=== PATIENT | female | born 2000 | race Caucasian/White ===

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

== ENCOUNTER 2018-01-03 21:00 | Inpatient (IN) ==
[2018-01-03 21:25] LABS: Bilirubin,Urine Negative (Negative); Blood,Urine Large (Negative); Clarity,Urine Clear (Clear); Color,Urine Yellow (Yellow); Glucose,Urine (UA) >=1000 mg/dL (Normal); Ketones,Urine >=160 mg/dL (Negative); Leukocyte Esterase,Urine Negative (Negative); Nitrite,Urine Negative (Negative); PH,Urine 5.5 pH Units (5.0-8.0); Protein,Urine Trace mg/dL (Neg-Trace); Specific Gravity,Urine > 1.030 (1.010-1.025); Urobilinogen,Urine Normal (Normal)
[2018-01-03 21:26] LABS: Bacteria,Urine None Seen per hpf (None-Few); Hyaline Casts,Urine None Seen per lpf (None-Few); RBC,Urine TNTC per hpf (0-3); Squamous Epithelial Cell,Urine Many per lpf (None-Few); WBC,Urine 0-3 per hpf (0-3)
[2018-01-03] MEDS ORDERED: 0.9 % Sodium Chloride 1,000 ML IVC ONE ×2 (21:26→21:45)
--- NOTE | 2018-01-03 21:28 | Emergency Department Note ---
Disposition Clinical Impression: DKA (diabetic ketoacidoses) Disposition: Admitted As Inpatient Condition: Fair General Adult HPI - General Chief complaint: ED General Medical Stated complaint: passing ketones/vomiting Time Seen by Provider: 01/03/18 21:17 Source: patient Limitations: no limitations - History of Present Illness Pain Scale: 8 - Related Data Home Medications Medication Instructions Recorded Confirmed Insulin LISPRO [HumaLOG] 1 - 7 units SQ TID PRN 04/22/15 01/03/18 Insulin Glargine,Hum.rec.anlog 50 unit SQ HS 05/23/17 01/03/18 [Lantus Solostar] Allergies Allergy/AdvReac Type Severity Reaction Status Date / Time adhesive AdvReac Rash Verified 09/15/17 10:43 latex AdvReac Rash Verified 09/15/17 10:43 Past Medical History - Past Medical History Medical history: Reports: diabetes, thyroid disease Surgical history: Reports: other Psychiatric history: Reports: no psych history CHARTER COORDINATOR history: Reports: no CHARTER COORDINATOR history - Social History Smoking Status: Never smoker Smokeless Tobacco Status: No Alcohol use: Reports: none Drug use: Reports: none Physical Exam - General Limitations: no limitations General appearance: alert Course Vital Signs Temperature 98.7 F 01/03/18 21:11 Pulse Rate 142 01/03/18 21:11 Respiratory Rate 18 01/03/18 21:11 Blood Pressure 117/73 01/03/18 21:11 O2 Sat by Pulse Oximetry 98 01/03/18 21:11 Temperature 98.3 F 01/04/18 20:20 Pulse Rate 100 01/04/18 17:00 Respiratory Rate 19 01/04/18 17:00 Blood Pressure 118/75 01/04/18 17:00 O2 Sat by Pulse Oximetry 99 01/04/18 17:00 Oxygen Delivery Oxygen Delivery Room Air Medical Decision Making - Lab Data Result diagrams: 01/04/18 17:30 01/04/18 17:30 Lab Results 01/03/18 01/03/18 01/03/18 Range/Units 21:00 21:00 21:24 WBC (4.3-11.1) K/mcL RBC (3.82-4.97) M/mcL Hgb (11.5-15.4) g/dL Hct (35.3-44.9) % MCV (83.0-100.0) fL MCH (28.0-33.3) pg MCHC (31.6-35.5) g/dL RDW (11.5-14.5) % Plt Count (140-400) K/mcL MPV (9.4-12.4) fL Immature Gran % (0-4) % Seg Neutrophils % % Lymphocytes % % Monocytes % % Eosinophils % % Basophils % % Neutrophils # (1.6-8.9) K/mcL Lymphocytes # (0.6-4.6) K/mcL Monocytes # (0.0-1.3) K/mcL Eosinophils # (0.0-0.6) K/mcL Basophils # (0.0-0.2) K/mcL VBG pH (7.32-7.42) pH Units VBG pCO2 (41-51) mmHg VBG pO2 (25-50) mmHg VBG HCO3 (21-27) mEq/L Sodium (136-145) mEq/L Potassium (3.5-5.1) mEq/L Chloride (98-107) mEq/L Carbon Dioxide (23-29) mEq/L BUN (6-20) mg/dL Creatinine (0.60-1.20) mg/dL Est GFR ( Amer) Est GFR (Non-Af Amer) BUN/Creatinine Ratio (6-26) Glucose (70-105) mg/dL POC Glucose 598 H* (70-99) mg/dL Calculated Osmolality (280-300) Calcium (8.6-10.3) mg/dL Magnesium (1.6-2.6) mg/dL Total Bilirubin (0.3-1.0) mg/dL AST (13-39) Units/L ALT (7-52) Units/L Alkaline Phosphatase (34-104) Units/L Serum Total Protein (6.4-8.9) g/dL Albumin (3.5-5.7) g/dL Globulin (2.4-3.5) g/dL Albumin/Globulin Ratio (1.1-2.2) Beta-Hydroxybutyric Acd (0.02-0.27) mmol/L Urine Color Yellow (Yellow) Urine Clarity Clear (Clear) Urine pH 5.5 (5.0-8.0) pH Units Ur Specific [place] > 1.030 H (1.010-1.025) Urine Protein Trace (Neg-Trace) mg/dL Urine Glucose (UA) >=1000 H (Normal) mg/dL Urine Ketones >=160 H (Negative) mg/dL Urine Blood Large H (Negative) Urine Nitrite Negative (Negative) Urine Bilirubin Negative (Negative) Urine Urobilinogen Normal (Normal) mg/dL Ur Leukocyte Esterase Negative (Negative) Urine Microscopic RBC TNTC H (0-3) per hpf Urine Microscopic WBC 0-3 (0-3) per hpf Ur Squamous Epith Cells Many H (None-Few) per lpf Urine Bacteria None Seen (None-Few) per hpf Hyaline Casts None Seen (None-Few) per lpf Ur Culture Indicated? NO (NO) Urine Test Negative (Negative) Person Notif of Crit 01/03/18 01/03/18 01/03/18 Range/Units 21:25 21:44 21:44 WBC 10.7 (4.3-11.1) K/mcL RBC 5.05 H (3.82-4.97) M/mcL Hgb 14.5 (11.5-15.4) g/dL Hct 42.9 (35.3-44.9) % MCV 85.0 (83.0-100.0) fL MCH 28.7 (28.0-33.3) pg MCHC 33.8 (31.6-35.5) g/dL RDW 13.6 (11.5-14.5) % Plt Count 476 H (140-400) K/mcL MPV 9.7 (9.4-12.4) fL Immature Gran % 0.6 (0-4) % Seg Neutrophils % 78.4 % Lymphocytes % 17.0 % Monocytes % 3.5 % Eosinophils % 0.1 % Basophils % 0.4 % Neutrophils # 8.4 (1.6-8.9) K/mcL Lymphocytes # 1.8 (0.6-4.6) K/mcL Monocytes # 0.4 (0.0-1.3) K/mcL Eosinophils # 0.0 (0.0-0.6) K/mcL Basophils # 0.0 (0.0-0.2) K/mcL VBG pH (7.32-7.42) pH Units VBG pCO2 (41-51) mmHg VBG pO2 (25-50) mmHg VBG HCO3 (21-27) mEq/L Sodium 131 L (136-145) mEq/L Potassium 5.4 H (3.5-5.1) mEq/L Chloride 91 L (98-107) mEq/L Carbon Dioxide 8 L* (23-29) mEq/L BUN 20 (6-20) mg/dL Creatinine 1.10 (0.60-1.20) mg/dL Est GFR ( Amer) > 60 Est GFR (Non-Af Amer) > 60 BUN/Creatinine Ratio 18 (6-26) Glucose 677 H* (70-105) mg/dL POC Glucose > 600 H* (70-99) mg/dL Calculated Osmolality 307 H (280-300) Calcium 9.5 (8.6-10.3) mg/dL Magnesium 2.2 (1.6-2.6) mg/dL Total Bilirubin 0.5 (0.3-1.0) mg/dL AST 12 L (13-39) Units/L ALT 11 (7-52) Units/L Alkaline Phosphatase 153 H (34-104) Units/L Serum Total Protein 7.8 (6.4-8.9) g/dL Albumin 4.6 (3.5-5.7) g/dL Globulin 3.2 (2.4-3.5) g/dL Albumin/Globulin Ratio 1.4 (1.1-2.2) Beta-Hydroxybutyric Acd (0.02-0.27) mmol/L Urine Color (Yellow) Urine Clarity (Clear) Urine pH (5.0-8.0) pH Units Ur Specific [place] (1.010-1.025) Urine Protein (Neg-Trace) mg/dL Urine Glucose (UA) (Normal) mg/dL Urine Ketones (Negative) mg/dL Urine Blood (Negative) Urine Nitrite (Negative) Urine Bilirubin (Negative) Urine Urobilinogen (Normal) mg/dL Ur Leukocyte Esterase (Negative) Urine Microscopic RBC (0-3) per hpf Urine Microscopic WBC (0-3) per hpf Ur Squamous Epith Cells (None-Few) per lpf Urine Bacteria (None-Few) per hpf Hyaline Casts (None-Few) per lpf Ur Culture Indicated? (NO) Urine Test (Negative) Person Notif of Crit 01/03/18 01/03/1801/03/18 Range/Units 21:44 21:55 22:34 WBC (4.3-11.1) K/mcL RBC (3.82-4.97) M/mcL Hgb (11.5-15.4) g/dL Hct (35.3-44.9) % MCV (83.0-100.0) fL MCH (28.0-33.3) pg MCHC (31.6-35.5) g/dL RDW (11.5-14.5) % Plt Count (140-400) K/mcL MPV (9.4-12.4) fL Immature Gran % (0-4) % Seg Neutrophils % % Lymphocytes % % Monocytes % % Eosinophils % % Basophils % % Neutrophils # (1.6-8.9) K/mcL Lymphocytes # (0.6-4.6) K/mcL Monocytes # (0.0-1.3) K/mcL Eosinophils # (0.0-0.6) K/mcL Basophils # (0.0-0.2) K/mcL VBG pH 7.18 L* (7.32-7.42) pH Units VBG pCO2 27 L (41-51) mmHg VBG pO2 64 H (25-50) mmHg VBG HCO3 10 L (21-27) mEq/L Sodium (136-145) mEq/L Potassium (3.5-5.1) mEq/L Chloride (98-107) mEq/L Carbon Dioxide (23-29) mEq/L BUN (6-20) mg/dL Creatinine (0.60-1.20) mg/dL Est GFR ( Amer) Est GFR (Non-Af Amer) BUN/Creatinine Ratio (6-26) Glucose (70-105) mg/dL POC Glucose 559 H* (70-99) mg/dL Calculated Osmolality (280-300) Calcium (8.6-10.3) mg/dL Magnesium (1.6-2.6) mg/dL Total Bilirubin (0.3-1.0) mg/dL AST (13-39) Units/L ALT (7-52) Units/L Alkaline Phosphatase (34-104) Units/L Serum Total Protein (6.4-8.9) g/dL Albumin (3.5-5.7) g/dL Globulin (2.4-3.5) g/dL Albumin/Globulin Ratio (1.1-2.2) Beta-Hydroxybutyric Acd > 2.00 H (0.02-0.27) mmol/L Urine Color (Yellow) Urine Clarity (Clear) Urine pH (5.0-8.0) pH Units Ur Specific [place] (1.010-1.025) Urine Protein (Neg-Trace) mg/dL Urine Glucose (UA) (Normal) mg/dL Urine Ketones (Negative) mg/dL Urine Blood (Negative) Urine Nitrite (Negative) Urine Bilirubin (Negative) Urine Urobilinogen (Normal) mg/dL Ur Leukocyte Esterase (Negative) Urine Microscopic RBC (0-3) per hpf Urine Microscopic WBC (0-3) per hpf Ur Squamous Epith Cells (None-Few) per lpf Urine Bacteria (None-Few) per hpf Hyaline Casts (None-Few) per lpf Ur Culture Indicated? (NO) Urine Test (Negative) Person Notif of Shereen GEORGES 01/03/18 01/03/18 01/03/18 Range/Units 22:35 23:38 23:39 WBC (4.3-11.1) K/mcL RBC (3.82-4.97) M/mcL Hgb (11.5-15.4) g/dL Hct (35.3-44.9) % MCV (83.0-100.0) fL MCH (28.0-33.3) pg MCHC (31.6-35.5) g/dL RDW (11.5-14.5) % Plt Count (140-400) K/mcL MPV (9.4-12.4) fL Immature Gran % (0-4) % Seg Neutrophils % % Lymphocytes % % Monocytes % % Eosinophils % % Basophils % % Neutrophils # (1.6-8.9) K/mcL Lymphocytes # (0.6-4.6) K/mcL Monocytes # (0.0-1.3) K/mcL Eosinophils # (0.0-0.6) K/mcL Basophils # (0.0-0.2) K/mcL VBG pH (7.32-7.42) pH Units VBG pCO2 (41-51) mmHg VBG pO2 (25-50) mmHg VBG HCO3 (21-27) mEq/L Sodium (136-145) mEq/L Potassium (3.5-5.1) mEq/L Chloride (98-107) mEq/L Carbon Dioxide (23-29) mEq/L BUN (6-20) mg/dL Creatinine (0.60-1.20) mg/dL Est GFR ( Amer) Est GFR (Non-Af Amer) BUN/Creatinine Ratio (6-26) Glucose (70-105) mg/dL POC Glucose > 600 H* 438 H* 432 H* (70-99) mg/dL Calculated Osmolality (280-300) Calcium (8.6-10.3) mg/dL Magnesium (1.6-2.6) mg/dL Total Bilirubin (0.3-1.0) mg/dL AST (13-39) Units/L ALT (7-52) Units/L Alkaline Phosphatase (34-104) Units/L Serum Total Protein (6.4-8.9) g/dL Albumin (3.5-5.7) g/dL Globulin (2.4-3.5) g/dL Albumin/Globulin Ratio (1.1-2.2) Beta-Hydroxybutyric Acd (0.02-0.27) mmol/L Urine Color (Yellow) Urine Clarity (Clear) Urine pH (5.0-8.0) pH Units Ur Specific [place] (1.010-1.025) Urine Protein (Neg-Trace) mg/dL Urine Glucose (UA) (Normal) mg/dL Urine Ketones (Negative) mg/dL Urine Blood (Negative) Urine Nitrite (Negative) Urine Bilirubin (Negative) Urine Urobilinogen (Normal) mg/dL Ur Leukocyte Esterase (Negative) Urine Microscopic RBC (0-3) per hpf Urine Microscopic WBC (0-3) per hpf Ur Squamous Epith Cells (None-Few) per lpf Urine Bacteria (None-Few) per hpf Hyaline Casts (None-Few) per lpf Ur Culture Indicated? (NO) Urine Test (Negative) Person Notif of Crit Critical Care Time Critical Care Time: Yes Total Critical Care Time: 30 Attestation: The high probability of a clinically significant, sudden or life threatening deterioration of the [] system(s) required my full and direct attention, intervention and personal management. The aggregate critical care time was [] minutes. This time is in addition to time spent performing reported procedures but includes the following: [] Data Review and interpretation [] Patient assessment and monitoring of vital signs [] Documentation [] Medication orders and management Attestation Statement - Attestation Attestation: I examined this patient and my medical decision-making was reviewed with the Resident Physician. I agree with the documented findings, disposition and treatment plan as described except to the extent set forth below. Face to face time provided Patient arrives claiming that she subjectively feels as if she is in diabetic ketoacidosis. She has a known history of type 1 diabetes and has been intermittently compliant with her sliding scale insulin. She is tachycardic but otherwise appears in no acute distress. Fingerstick glucose at the bedside is greater than 500 upon arrival.
--- NOTE | 2018-01-03 21:42 | Emergency Department Note ---
Disposition Clinical Impression: DKA (diabetic ketoacidoses) Disposition: Admitted As Inpatient Condition: Fair Referrals: Pam Ramirez MD [Primary Care Provider] - Forms: ED Satisfaction Letter, Work/School Release Time of Disposition: 22:24 General Adult HPI - General Chief complaint: ED General Medical Stated complaint: passing ketones/vomiting Time Seen by Provider: 01/03/18 21:17 Source: patient Limitations: no limitations Nursing Notes Reviewed: Yes Vital Signs Reviewed: Yes - History of Present Illness HPI Narrative: 17-year-old female presents from home for evaluation of hyperglycemia. Subjectively, patient states she feels that she is in DKA. Patient has nausea, abdominal pain, generalized weakness. This feels similar to her as prior episodes of DKA. Though she has taken her Lantus regularly, she has forgotten to take her Humalog postprandial. Insulin regimen: Lantus 50 units at night. (Unknown what Lantus ratio) Humulin sliding scale (unknown which sliding scale) ROS: Positive: As above Negative: Fever, chills, chest pain, palpitations, diaphoresis, dysuria, changes in bowel habits Pain Scale: 8 - Related Data Home Medications Medication Instructions Recorded Confirmed Insulin LISPRO [HumaLOG] 1 - 7 units SQ TID PRN 04/22/15 01/03/18 Insulin Glargine,Hum.rec.anlog 50 unit SQ HS 05/23/17 01/03/18 [Lantus Solostar] Allergies Allergy/AdvReac Type Severity Reaction Status Date / Time adhesive AdvReac Rash Verified 09/15/17 10:43 latex AdvReac Rash Verified 09/15/17 10:43 All systems ED: reviewed and negative except as stated. Review of Systems: As Per HPI Past Medical History - Past Medical History Medical history: Reports: diabetes, thyroid disease Surgical history: Reports: other Psychiatric history: Reports: no psych history POOL TECHNICIAN history: Reports: no POOL TECHNICIAN history - Social History Smoking Status: Never smoker Smokeless Tobacco Status: No Alcohol use: Reports: none Drug use: Reports: none Physical Exam Vital Signs Reviewed-patient is tachycardic but not tachypneic. General: Patient is alert, oriented, and mild distress from her discomfort. Head: atraumatic, normocephalic Eye: normal appearance, PERRL, EOMI, no scleral icterus, no conjunctival injection ENT: mucous membranes moist, normal external ear exam Neck: normal inspection, trachea midline, full ROM Chest: normal inspection, symmetric chest rise Respiratory: Good respiratory effort. Bilateral breath sounds are clear without wheezing, crackles, or rhonchi. O2 small breathing. Cardiovascular: Regular rate and rhythm. No clicks, rubs, gallops, or murmors. Normal heart sounds. Abdomen: Obese. Bowel sounds present normoactive x-4 quadrants. Abdomen is soft, nondistended. Mild diffuse tenderness. No guarding or rebound. Musculoskeletal: Spontaneously moving all extremities. Skin: warm, dry, intact. Neuro: Alert and oriented x4. Sensation light touch intact. Psych: Patient's affect is appropriate for situation. - General Limitations: no limitations General appearance: alert Course Course Narrative: Intake POC glucose red around 600. Patient is acidotic with VBG pH 7.18. BMP glucose 677 with CO2 of 8. Patient is a 9 gap acidosis with positive serum ketones. Treatment thus far: 2 L normal saline bolus. Insulin drip at 9 units per hour turning dose titrated per DKA protocol with D5 ordered for hypoglycemic rescue. As the patient with the admitting hospital his, Dr. De León, who agrees to accept the patient for continued management and evaluation of the patient's DKA. EKG dated 01/03/18 at 21:31 interpreted as sinus rhythm with rate of 132. QTC 400. Normal axis. Normal intervals. Nonspecific ST-T changes. Compared to previous EKG dated 08/21/2017 showing no acute ischemic changes or comparison. Vital Signs Temperature 98.7 F 01/03/18 21:11 Pulse Rate 142 01/03/18 21:11 Respiratory Rate 18 01/03/18 21:11 Blood Pressure 117/73 01/03/18 21:11 O2 Sat by Pulse Oximetry 98 01/03/18 21:11 Temperature 98.7 F 01/03/18 21:17 Pulse Rate 142 01/03/18 21:17 Respiratory Rate 18 01/03/18 21:17 Blood Pressure 117/73 01/03/18 21:17 O2 Sat by Pulse Oximetry 98 01/03/18 21:17 Oxygen Delivery Oxygen Delivery Room Air Medical Decision Making - Lab Data Result diagrams: 01/03/18 21:44 Lab Results 01/03/18 01/03/18 01/03/18 Range/Units 21:00 21:00 21:24 WBC (4.3-11.1) K/mcL RBC (3.82-4.97) M/mcL Hgb (11.5-15.4) g/dL Hct (35.3-44.9) % MCV (83.0-100.0) fL MCH (28.0-33.3) pg MCHC (31.6-35.5) g/dL RDW (11.5-14.5) % Plt Count (140-400) K/mcL MPV (9.4-12.4) fL Immature Gran % (0-4) % Seg Neutrophils % % Lymphocytes % % Monocytes % % Eosinophils % % Basophils % % Neutrophils # (1.6-8.9) K/mcL Lymphocytes # (0.6-4.6) K/mcL Monocytes # (0.0-1.3) K/mcL Eosinophils # (0.0-0.6) K/mcL Basophils # (0.0-0.2) K/mcL VBG pH (7.32-7.42) pH Units VBG pCO2 (41-51) mmHg VBG pO2 (25-50) mmHg VBG HCO3 (21-27) mEq/L POC Glucose 598 H* (70-99) mg/dL Urine Color Yellow (Yellow) Urine Clarity Clear (Clear) Urine pH 5.5 (5.0-8.0) pH Units Ur Specific [place] > 1.030 H (1.010-1.025) Urine Protein Trace (Neg-Trace) mg/dL Urine Glucose (UA) >=1000 H (Normal) mg/dL Urine Ketones >=160 H (Negative) mg/dL Urine Blood Large H (Negative) Urine Nitrite Negative (Negative) Urine Bilirubin Negative (Negative) Urine Urobilinogen Normal (Normal) mg/dL Ur Leukocyte Esterase Negative (Negative) Urine Microscopic RBC TNTC H (0-3) per hpf Urine Microscopic WBC 0-3 (0-3) per hpf Ur Squamous Epith Cells Many H (None-Few) per lpf Urine Bacteria None Seen (None-Few) per hpf Hyaline Casts None Seen (None-Few) per lpf Ur Culture Indicated? NO (NO) Urine Test Negative (Negative) Person Notif of Crit 07/04/1301/03/18 01/03/18 Range/Units 21:25 21:44 21:55 WBC 10.7 (4.3-11.1) K/mcL RBC 5.05 H (3.82-4.97) M/mcL Hgb 14.5 (11.5-15.4) g/dL Hct 42.9 (35.3-44.9) % MCV 85.0 (83.0-100.0) fL MCH 28.7 (28.0-33.3) pg MCHC 33.8 (31.6-35.5) g/dL RDW 13.6 (11.5-14.5) % Plt Count 476 H (140-400) K/mcL MPV 9.7 (9.4-12.4) fL Immature Gran % 0.6 (0-4) % Seg Neutrophils % 78.4 % Lymphocytes % 17.0 % Monocytes % 3.5 % Eosinophils % 0.1 % Basophils % 0.4 % Neutrophils # 8.4 (1.6-8.9) K/mcL Lymphocytes # 1.8 (0.6-4.6) K/mcL Monocytes # 0.4 (0.0-1.3) K/mcL Eosinophils # 0.0 (0.0-0.6) K/mcL Basophils # 0.0 (0.0-0.2) K/mcL VBG pH 7.18 L* (7.32-7.42) pH Units VBG pCO2 27 L (41-51) mmHg VBG pO2 64 H (25-50) mmHg VBG HCO3 10 L (21-27) mEq/L POC Glucose > 600 H* (70-99) mg/dL Urine Color (Yellow) Urine Clarity (Clear) Urine pH (5.0-8.0) pH Units Ur Specific [place] (1.010-1.025) Urine Protein (Neg-Trace) mg/dL Urine Glucose (UA) (Normal) mg/dL Urine Ketones (Negative) mg/dL Urine Blood (Negative) Urine Nitrite (Negative) Urine Bilirubin (Negative) Urine Urobilinogen (Normal) mg/dL Ur Leukocyte Esterase (Negative) Urine Microscopic RBC (0-3) per hpf Urine Microscopic WBC (0-3) per hpf Ur Squamous Epith Cells (None-Few) per lpf Urine Bacteria (None-Few) per hpf Hyaline Casts (None-Few) per lpf Ur Culture Indicated? (NO) Urine Test (Negative) Person Notif of Shereen [place]OR[place]ES
[2018-01-03] MEDS ORDERED: Ondansetron 4 MG/2 ML VIAL IVP ONE (21:45)
[2018-01-03] MEDS ORDERED: Ondansetron 4 MG/2 ML VIAL ONE (21:46)
[2018-01-03 21:58] LABS: Basophils % 0.4 %; Eosinophils % 0.1 %; Hematocrit 42.9 % (35.3-44.9); Hemoglobin 14.5 g/dL (11.5-15.4); Immature Granulocytes % 0.6 % (0-4); Lymphocytes # 1.8 K/mcL (0.6-4.6); Mean Corpuscular HGB Conc 33.8 g/dL (31.6-35.5); Mean Corpuscular Hemoglobin 28.7 pg (28.0-33.3); Mean Platelet Volume 9.7 fL (9.4-12.4); Monocytes # 0.4 K/mcL (0.0-1.3); Monocytes % 3.5 %; Neutrophils # 8.4 K/mcL (1.6-8.9); Platelet Count 476 K/mcL (140-400); Red Blood Count 5.05 M/mcL (3.82-4.97); Red Cell Distribution Width 13.6 % (11.5-14.5); Segmented Neutrophils % 78.4 %
[2018-01-03 22:03] LABS: VBG HCO3 10 mEq/L (21-27); VBG PCO2 27 mmHg (41-51); VBG PH 7.18 pH Units (7.32-7.42); VBG PO2 64 mmHg (25-50)
[2018-01-03] MEDS ORDERED: *HR* Dextrose 50 % in Water (Syg) 50 ML SYRINGE IVP PRN (22:03)
[2018-01-03 22:16] LABS: Alanine Aminotransferase 11 Units/L (7-52); Albumin 4.6 g/dL (3.5-5.7); Albumin/Globulin Ratio 1.4 (1.1-2.2); Alkaline Phosphatase 153 Units/L (34-104); Aspartate Amino Transferase 12 Units/L (13-39); BUN/Creatinine Ratio 18 (6-26); Bilirubin,Total 0.5 mg/dL (0.3-1.0); Blood Urea Nitrogen 20 mg/dL (6-20); Calcium 9.5 mg/dL (8.6-10.3); Carbon Dioxide 8 mEq/L (23-29); Chloride 91 mEq/L (98-107); Globulin 3.2 g/dL (2.4-3.5); Glucose 677 mg/dL (70-105); Magnesium 2.2 mg/dL (1.6-2.6); Osmolality,Calculated 307 (280-300); Potassium 5.4 mEq/L (3.5-5.1); Sodium 131 mEq/L (136-145); Total Protein 7.8 g/dL (6.4-8.9); eGFR For African Americans > 60; eGFR For Non-African Americans > 60
[2018-01-03] MEDS: Insulin Human Regular 100 UNIT in 0.9 % Sodium Chloride 100 ML IVC SCH (22:36)
[2018-01-04] MEDS ORDERED: *HR* Dextrose 50 % in Water (Syg) 50 ML SYRINGE IVP PRN ×2 (00:30→19:22)
[2018-01-04] MEDS ORDERED: Naloxone 0.4 MG/ML INJ IVP PRN (00:30)
[2018-01-04] MEDS ORDERED: *HR* Promethazine 25 MG/ML VIAL IVP PRN (00:36)
[2018-01-04] MEDS ORDERED: Ondansetron 4 MG/2 ML VIAL IVP PRN (00:36)
[2018-01-04] MEDS: 0.9 % Sodium Chloride 1,000 ML IVC SCH ×3 (01:11→09:29)
[2018-01-04 01:13] LABS: Basophils % 0.3 %; Hematocrit 42.9 % (35.3-44.9); Hemoglobin 13.9 g/dL (11.5-15.4); Immature Granulocytes % 0.5 % (0-4); Lymphocytes # 1.6 K/mcL (0.6-4.6); Lymphocytes % 10.9 %; Mean Corpuscular HGB Conc 32.4 g/dL (31.6-35.5); Mean Corpuscular Hemoglobin 28.4 pg (28.0-33.3); Mean Corpuscular Volume 87.6 fL (83.0-100.0); Mean Platelet Volume 9.6 fL (9.4-12.4); Monocytes # 0.5 K/mcL (0.0-1.3); Monocytes % 3.2 %; Neutrophils # 12.4 K/mcL (1.6-8.9); Platelet Count 464 K/mcL (140-400); Red Cell Distribution Width 13.7 % (11.5-14.5); Segmented Neutrophils % 85.1 %
--- NOTE | 2018-01-04 01:15 | Internal Med History&Physical ---
Date of Encounter: 01/04/18 Time of Encounter: 00:15 Internal Medicine - H&P: HPI Chief complaint: vomiting; high glucose Admitted From: Emergency Dept Plans for Post Hospital Care: Home History of present illness: Ms. Reyes is a 17 year old female who presents to the ER with a one day history of protracted nausea, vomiting, and high glucose. Patient has insulin- dependent diabetes and was noted to be in DKA upon initial assessment in the ER based upon clinical exam, history, and laboratory analysis. She was fluid resuscitated in the ER and started on insulin drip. She was then admitted to hospitalist service for further workup and care. Upon my assessment of the patient, patient and her mother confirmed above history. She was feeling well roughly 24 hours ago. She denies any fevers, chills, cough, congestion, dysuria, hematuria, or abdominal pain. 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 She works 2 to 3 jobs and works 7 days a week. She has not been compliant lately with her insulin and /or diet due to work obligations. Her glucose has been averaging around 200- 300 range. She also has a history of recurrent UTI and obstructive uropathy requiring surgical intervention by urology earlier this year. However, she has has not had a recent UTI in the last couple months and denies any UTI symptoms presently. Past Med Surg Social Fam HX - Past Medical History Attestation: Yes The following information was validated with the patient. Source: patient, old records reviewed, obtained from family Medical history: diabetes, thyroid disease Additional medical history: chronic kidney infection Psychiatric history: anxiety - Past Surgical History Surgical History: other Additional surgical history: pilonidal cystectomy 2015. nephrostomy tubes 04/20 & 05/23/17. wisdom teeth 2015. Stent in kidney 2018 - Social History Smoking Status: Never smoker Smokeless Tobacco Status: No Alcohol use: none Drug use: none Occupational status: employed, student Current living situation: Home, With Family Activity Level: Independent ambulation, Very active Recent Out of Country Travel Within the Last 8 Weeks: No - Family History Father History Unknown: Yes Living Status: Still Living Hx Family Cancer: Yes (malignant brain tumor at age 10) Hx Family Neurologic Disorders: Yes (Benign brain tumor) Mother History Unknown: Yes Living Status: Still Living Hx Family Cardiac Disorders: Yes (htn) Internal Medicine - H&P: Meds Insulin LISPRO [HumaLOG] 1 - 7 units SQ TID PRN 04/22/15 [History] Insulin Glargine,Hum.rec.anlog [Lantus Solostar] 50 unit SQ HS 05/23/17 [History ] 3 Allergy/AdvReac Type Severity Reaction Status Date / Time adhesive AdvReac Rash Verified 09/15/17 10:43 latex AdvReac Rash Verified 09/15/17 10:43 - Constitutional Constitutional: fatigue, no chills, no fever(s) - EENT Eyes: no blurry vision, no change in vision Ears: no ear pain, no tinnitus Nose, mouth and throat: no nasal congestion, no sinus pressure, no sore throat - Cardiovascular Cardiovascular ROS IM: no chest pain, no dyspnea, no dyspnea on exertion - Respiratory Respiratory: no cough, no hemoptysis, no dyspnea on exertion, no chest congestion, no excessive phlegm production, no change in phlegm color - Gastrointestinal Gastrointestinal: nausea, vomiting, no abdominal pain, no diarrhea, no hematemesis, no hematochezia, no melena - Genitourinary Genitourinary: no dysuria, no flank pain, no hematuria - Musculoskeletal Musculoskeletal ROS IM: no arthralgias, no back pain - Integumentary Integumentary IM: no rash, no jaundice - Neurological Neurological ROS: no dizziness, no focal weakness, no frequent falls, no headache(s) - Psychiatric Psychiatric: no anxiety, no depression - Endocrine Endocrine IM: polydipsia, polyuria, no polyphagia - Hematologic/Lymphatic Hematologic/Lymphatic: no easy bruising, no lymphadenopathy - Allergic/Immunologic Allergic/Immunologic: no wheezing, no GI upset with certain foods - Constitutional Vitals: Temp Pulse Resp BP Pulse Ox 98.4 F 134 22 135/78 100 01/04/18 00:20 01/04/18 00:30 01/04/18 00:25 01/04/18 00:25 01/04/18 00:25 General appearance: Present: cooperative, mild distress, A&O X 3, pleasant, answers questions appropriately - Head Head exam: Present: atraumatic, normal inspection - Eye Eye exam: Present: EOMI, PERRL. Absent: scleral icterus Pupils: Present: normal accommodation - ENT ENT exam: Present: mucous membranes dry, normal exam, normal oropharynx - Neck Neck exam general surgery: Present: full ROM, supple. Absent: lymphadenopathy, tenderness, nuchal rigidity, thyromegaly - Respiratory Respiratory exam: Present: CTAB. Absent: chest wall tenderness, rales, respiratory distress, rhonchi, wheezes - Cardiovascular Cardiovascular exam: Present: RRR, +S1, +S2, tachycardia. Absent: diastolic murmur, systolic murmur - GI/Abdominal GI/Abdominal exam: Present: normal bowel sounds, soft. Absent: guarding, hepatomegaly, mass, rebound, splenomegaly, tenderness - Extremities Exam Extremities exam: Present: full ROM, warm, radial pulses palpable and symmetrical. Absent: calf tenderness, joint swelling, pedal edema, tenderness - Back Exam Back exam: Absent: CVA tenderness (L), CVA tenderness (R) - Neurological Exam Neurological exam: Present: alert, CN II-XII intact, oriented X3, no focal deficits - Psychiatric Psychiatric exam: Present: normal affect, normal mood - Skin Skin exam: Present: dry, warm. Absent: rash Internal Med - H&P Results - Labs CBC & Chem 7: 01/03/18 21:44 01/03/18 21:44 - EKG Data -: EKG Interpreted by Myself - EKG Data Prior EKG available for review: no EKG comments: 01/04/18 01:18 sinus tachycardia; no acute ST-T changes; do NOT agree with computer interpretation of Atrial Flutter w RVR - Assessment and plan (1) DKA (diabetic ketoacidoses) Current Visit: Yes Status: Acute Assessment and plan: 1. Patient will be [facility] npo for now. 2. Will continue IVF hydration, insulin drip, and close glucose monitoring per DKA protocol. 3. Non-compliance likely a contributing factor to poor glucose control. 4. Will order renal ultrasound to evaluate for hydronephrosis/obstruction as etiology of DKA. 5. History and labs do no suggest infectious etiology. 6. Monitor closely on telemetry bed. 7. test negative. Qualifiers: Diabetes mellitus type: type 1 Diabetes mellitus complication detail: without coma Qualified Code(s): E10.10 - Type 1 diabetes mellitus with ketoacidosis without coma (2) IDDM (insulin dependent diabetes mellitus) Current Visit: Yes Status: Chronic Assessment and plan: 1. Patient has recently become poorly compliant with IDDM. 2. Patient counseled on the need to monitor glucose and insulin closely. 3. I suggested cutting her work schedule to accommodate her health needs. 4. Follow up with PCP and/endocrinology as outpatient. Consider insulin pump. (3) DVT prophylaxis Current Visit: Yes Status: Acute Assessment and plan: 1. EPCD's.
[2018-01-04 01:40] LABS: Alanine Aminotransferase 11 Units/L (7-52); Albumin 4.5 g/dL (3.5-5.7); Albumin/Globulin Ratio 1.4 (1.1-2.2); Alkaline Phosphatase 147 Units/L (34-104); Aspartate Amino Transferase 12 Units/L (13-39); BUN/Creatinine Ratio 18 (6-26); Bilirubin,Total 0.3 mg/dL (0.3-1.0); Blood Urea Nitrogen 18 mg/dL (6-20); Calcium 8.7 mg/dL (8.6-10.3); Carbon Dioxide 7 mEq/L (23-29); Chloride 104 mEq/L (98-107); Globulin 3.3 g/dL (2.4-3.5); Glucose 341 mg/dL (70-105); Magnesium 2.1 mg/dL (1.6-2.6); Osmolality,Calculated 301 (280-300); Potassium 4.4 mEq/L (3.5-5.1); Sodium 138 mEq/L (136-145); Total Protein 7.8 g/dL (6.4-8.9); eGFR For African Americans > 60; eGFR For Non-African Americans > 60
[2018-01-04] MEDS: D5% in 0.45% NACL w KCl 20 MEQ/1,000 ML MLS IVC PRN ×2 (02:23→06:24)
[2018-01-04 05:57] LABS: Alanine Aminotransferase 8 Units/L (7-52); Albumin 3.8 g/dL (3.5-5.7); Albumin/Globulin Ratio 1.7 (1.1-2.2); Alkaline Phosphatase 114 Units/L (34-104); Aspartate Amino Transferase 12 Units/L (13-39); BUN/Creatinine Ratio 18 (6-26); Bilirubin,Total 0.4 mg/dL (0.3-1.0); Blood Urea Nitrogen 15 mg/dL (6-20); Calcium 8.1 mg/dL (8.6-10.3); Carbon Dioxide 15 mEq/L (23-29); Chloride 114 mEq/L (98-107); Globulin 2.3 g/dL (2.4-3.5); Glucose 116 mg/dL (70-105); Magnesium 1.7 mg/dL (1.6-2.6); Osmolality,Calculated 292 (280-300); Phosphorous 1.6 mg/dL (2.7-4.5); Potassium 4.1 mEq/L (3.5-5.1); Sodium 140 mEq/L (136-145); Total Protein 6.1 g/dL (6.4-8.9); eGFR For African Americans > 60; eGFR For Non-African Americans > 60
[2018-01-04] MEDS: Insulin Human Regular 100 UNIT in 0.9 % Sodium Chloride 100 ML IVC SCH (06:08)
[2018-01-04] MEDS ORDERED: Potassium Phosphate 44 MEQ in 0.9 % Sodium Chloride 250 ML IVPB ONE (06:46)
[2018-01-04] MEDS: D5% in 0.45% NACL 1,000 ML IVC SCH ×2 (07:00→19:47)
[2018-01-04 08:33] LABS: Estimated Average Glucose 355 mg/dl
[2018-01-04 10:29] LABS: VBG HCO3 18 mEq/L (21-27); VBG PCO2 37 mmHg (41-51); VBG PO2 175 mmHg (25-50)
[2018-01-04 10:39] LABS: BUN/Creatinine Ratio 15 (6-26); Blood Urea Nitrogen 12 mg/dL (6-20); Calcium 8.1 mg/dL (8.6-10.3); Carbon Dioxide 18 mEq/L (23-29); Chloride 112 mEq/L (98-107); Glucose 174 mg/dL (70-105); Magnesium 1.8 mg/dL (1.6-2.6); Osmolality,Calculated 288 (280-300); Phosphorous 2.4 mg/dL (2.7-4.5); Potassium 4.1 mEq/L (3.5-5.1); Sodium 137 mEq/L (136-145); eGFR For African Americans > 60; eGFR For Non-African Americans > 60
[2018-01-04 17:45] LABS: Basophils % 0.3 %; Eosinophils # 0.1 K/mcL (0.0-0.6); Hematocrit 34.7 % (35.3-44.9); Immature Granulocytes % 0.2 % (0-4); Lymphocytes % 45.9 %; Mean Corpuscular HGB Conc 33.7 g/dL (31.6-35.5); Mean Corpuscular Hemoglobin 28.4 pg (28.0-33.3); Mean Corpuscular Volume 84.2 fL (83.0-100.0); Mean Platelet Volume 9.2 fL (9.4-12.4); Monocytes # 0.3 K/mcL (0.0-1.3); Monocytes % 4.7 %; Neutrophils # 2.9 K/mcL (1.6-8.9); Platelet Count 337 K/mcL (140-400); Red Blood Count 4.12 M/mcL (3.82-4.97); Red Cell Distribution Width 14.2 % (11.5-14.5); Segmented Neutrophils % 47.9 %
[2018-01-04 17:48] LABS: Hemoglobin 11.7 g/dL (11.5-15.4); Lymphocytes # 2.8 K/mcL (0.6-4.6)
[2018-01-04 18:02] LABS: BUN/Creatinine Ratio 10 (6-26); Blood Urea Nitrogen 7 mg/dL (6-20); Calcium 8.1 mg/dL (8.6-10.3); Carbon Dioxide 20 mEq/L (23-29); Chloride 112 mEq/L (98-107); Glucose 172 mg/dL (70-105); Osmolality,Calculated 286 (280-300); Potassium 3.3 mEq/L (3.5-5.1); Sodium 137 mEq/L (136-145); eGFR For African Americans > 60; eGFR For Non-African Americans > 60
[2018-01-04] MEDS ORDERED: D5% in Water 1,000 ML IVC PRN (19:22)
[2018-01-04] MEDS ORDERED: Dextrose Gel 15 GM/37.5 ML TUBE PO PRN ×2 (19:22)
[2018-01-04] MEDS ORDERED: Insulin DETEMIR 100 UNIT/ML X5UNITS SQ SCH (21:00)
[2018-01-04] MEDS: Insulin LISPRO 300 UNITS/3 ML VIAL SQ SCH (23:22)
[2018-01-05] MEDS: Insulin LISPRO 300 UNITS/3 ML VIAL SQ SCH ×2 (06:39→11:56)
--- NOTE | 2018-01-05 06:49 | Electrocardiograph Report ---
[address] [place] [address] Test Date: 2018-01-03 Pat Name: Cierra Reyes Department: 104 Room: [facility] Gender: F Borough Coordinator: JUSTIN : 2000 Requested By: Maximiliano Roberts Order Number: [id number] Reading MD: Juan Manuel Judd Measurements Intervals [place] Rate: 132 P: [place]: 0 QRS: 89 QRSD: 87 T: 11 QT: 322 QTc: 400 Interpretive Statements SINUS TACHYCARDIA Electronically Signed On 01-05-2018 6:47:45 EDT by Juan Manuel Judd
--- NOTE | 2018-01-05 07:01 | Electrocardiograph Report ---
[address] [place] [address] Test Date: 2018-01-04 Pat Name: Cierra Reyes Department: 109 Room: [facility] Gender: F Tubing Supervisor: : 2000 Requested By: Tyler De León Order Number: [id number] Reading MD: Juan Manuel Judd Measurements Intervals [place] Rate: 109 P: 50 OK: 137 QRS: 72 QRSD: 91 T: 30 QT: 347 QTc: 411 Interpretive Statements SINUS TACHYCARDIA Electronically Signed On 01-05-2018 6:59:35 EDT by Juan Manuel Judd
[2018-01-05] MEDS ORDERED: 0.9 % Sodium Chloride 500 ML IVC ONE (09:15)
[2018-01-05 10:07] LABS: BUN/Creatinine Ratio 8 (6-26); Blood Urea Nitrogen 5 mg/dL (6-20); Calcium 8.7 mg/dL (8.6-10.3); Carbon Dioxide 18 mEq/L (23-29); Chloride 110 mEq/L (98-107); Glucose 174 mg/dL (70-105); Magnesium 1.7 mg/dL (1.6-2.6); Osmolality,Calculated 287 (280-300); Sodium 138 mEq/L (136-145); eGFR For African Americans > 60; eGFR For Non-African Americans > 60
--- NOTE | 2018-01-05 14:25 | Discharge Summary ---
- NOTES TO OUTPATIENT PROVIDER Notes to Outpatient Provider: DKA due to noncompliance; Date of Encounter: 01/05/18 Time of Encounter: 09:00 - Discharge Diagnosis (1) DKA (diabetic ketoacidoses) Priority: Primary Status: Acute Qualifiers: Diabetes mellitus type: type 1 Diabetes mellitus complication detail: without coma Qualified Code(s): E10.10 - Type 1 diabetes mellitus with ketoacidosis without coma (2) IDDM (insulin dependent diabetes mellitus) Priority: Secondary Status: Chronic (3) Hypothyroidism Priority: Secondary Status: Chronic Qualifiers: Hypothyroidism type: unspecified Qualified Code(s): E03.9 - Hypothyroidism , unspecified (4) Anxiety Priority: Secondary Status: Chronic Hospital course: Ms. Reyes is a 17 year old female with h/o- DM-type 1, admitted with worsening nausea, vomiting, abdominal pain and dehydration. She was noted to be in DKA due to noncompliance to insulin and diabetic diet due to having busy summer jobs, per patient. SHe was admitted to ICU, started on IV insulin drip per protocol. Her blood sugars and metabolic acidosis gradually improved, anion gap closed, and she currently tolerates oral diet. Noted to be slightly tachycardic this morning, sinus tachycardia, given IV hydration and HR improved. She is otherwise medically stable for discharge. reinforced compliance to meds and Endocrinology and PCP f/up. Discharge discussed with: patient, family, nurse - Time Spent with Patient Total time spent providing and/or coordinating discharge services: Greater than 30 minutes (40 min) - Discharge Medications Home Medications: Insulin LISPRO [HumaLOG] 1 - 7 units SQ TID PRN 04/22/15 [History] Insulin Glargine,Hum.rec.anlog [Lantus Solostar] 50 unit SQ HS 05/23/17 [History ] Allergies/Adverse Reactions: 3 Allergy/AdvReac Type Severity Reaction Status Date / Time adhesive AdvReac Rash Verified 09/15/17 10:43 latex AdvReac Rash Verified 09/15/17 10:43 Date of admission: 01/05/18 10:01 Primary care physician: Pam Ramirez MD Discharging clinician: Martha Kim Anticipated date of discharge: 01/05/18 - Constitutional Vitals: Temp Pulse Resp BP Pulse Ox 98.3 F 100 19 117/86 99 01/05/18 11:37 01/05/18 08:20 01/05/18 08:20 01/05/18 08:20 01/05/18 08:20 General appearance: Present: cooperative, mild distress, A&O X 3, obese, answers questions appropriately - Respiratory Respiratory exam: Present: CTAB. Absent: accessory muscle use, rales, rhonchi, wheezes - Cardiovascular Cardiovascular exam: Present: RRR, +S1, +S2. Absent: diastolic murmur, gallop, rubs, systolic murmur - Patient Status Disposition: Home, Self-Care Condition: Good Functional capacity at discharge: independent ambulation Overall status at discharge: patient is progressing back to baseline - Discharge Instructions Instructions: Diabetic Ketoacidosis (DC), Diabetic Ketoacidosis (GEN), Diabetes Mellitus Type 2 in Adults (DC) Follow Up With: Pam Ramirez MD [Primary Care Provider] - Additional Instructions: F/up with PCP in 1-2 weeks F/up with Endocrinology as scheduled - Diet and Activity Activity: resume usual activities as tolerated Diet: diabetic diet - VTE Documentation of Mechanical Device: Intermittent pneumatic compression device
[2018-01-05] MEDS ORDERED: *HR* Heparin 5,000 UNIT/ML VIAL SQ SCH (16:00)
[2018-01-05 16:53] VITALS: BP 118/56
== END 2018-01-05 16:30 | disposition home or self-care (01) | DRG 639 ==
LOC: EMEROO 21:00 → ICNU 23:53 → INTOOBSV 23:53 → SUATTDRO 23:53 → ICNU 01-04 00:13
PROVIDERS: ADMIT Pediatrics; ATTEND Internal Medicine